=== PATIENT | female | born 1965 | race Caucasian/White ===

== ENCOUNTER 2025-04-11 07:32 | Emergency (ER) | payer OTHER ==
[2025-04-11 08:06] LABS: Bacteria/HPF None Seen HPF (None Seen); CAUTI Indications for Culture Alt mental st,lethar; Glucose, Urine (Dipstick) Normal (Negative); Leukocyte Negative Leu/uL (Negative); Protein, Urine (Dipstick) Negative (Neg-Trace); RBC/HPF 0-3 HPF (0-3); Specific Gravity, Urine 1.023 (1.002-1.036); WBC/HPF 0-3 HPF (0-3)
[2025-04-11] MEDS ORDERED: levETIRAcetam 500 MG (5 mL) VIAL ONE (08:17)
[2025-04-11 08:19] LABS: Urine Culture Reflex No No
[2025-04-11 08:23] LABS: #Basophils 0.04 10x3/uL (0.0-0.2); #Eosinophils 0.07 10x3/uL (0.0-0.7); #Monocytes 0.78 10x3/uL (0.11-0.59); #Neutrophils 6.23 10x3/uL (1.40-6.50); %Basophils 0.5 % (0.0-1.0); %Eosinophils 0.8 % (0.0-10.0); %Lymphocytes 18.4 % (21.0-51.0); %Monocytes 8.9 % (0.0-10.0); %Neutrophils 71.2 % (42.0-75.0); Hematocrit 40.7 % (36.0-47.0); Hemoglobin 13.8 g/dL (12.0-16.0); Mean Corpuscular Hemoglobin 30.6 pg (27.0-31.0); Mean Corpuscular Volume 90.2 fL (78.0-98.0); Platelet Count 290 10x3/uL (130-400); Red Blood Cell (RBC) Count 4.51 mill/uL (4.20-5.40); White Blood Cell (WBC) Count 8.75 10x3/uL (4.8-10.8)
[2025-04-11 08:32] LABS: Cocaine Metabolite Screen Negative (Negative); THC/Cannabinoid Screen PRELIM POSITIVE (Negative); Tricyclic Screen Negative (Negative)
[2025-04-11 09:09] LABS: ALT (SGPT) 20 U/L (Less than 34); AST (SGOT) 32 U/L (11-34); Acetaminophen Less than 10 mcg/mL (Less than 10); Albumin 4.3 g/dL (3.1-4.5); Alkaline Phosphatase 93 U/L (40-110); Anion Gap 18 mmol/L (10-20); BUN (Urea Nitrogen) 15 mg/dL (9.8-20.1); Bilirubin, Total 0.5 mg/dL (0.3-1.2); Calc. Creatinine Clearance 0 mL/min (70-130); Calcium 9.4 mg/dL (7.8-10.44); Carbon Dioxide 24 mmol/L (22-29); Chloride 103 mmol/L (98-107); Globulin 3.2 g/dL (2.4-3.5); Glucose 98 mg/dL (70-105); Lipase 18 U/L (8-78); Potassium 3.8 mmol/L (3.5-5.1); Salicylate Less than 8.0 mg/dL (Less than 8.0); Sodium 141 mmol/L (136-145)
== END 2025-04-11 10:08 | disposition home or self-care (01) ==
LOC: ERS 07:32
DX: R56.9 Unspecified convulsions (principal); S00.512A Abrasion of oral cavity, initial encounter; X58.XXXA Exposure to other specified factors, initial encounter
CPT/HCPCS: 70450; 71045; 80306; 80307; 81001; 83690; 84146; 84443; 85025; 93005; 96374; J1953

== ENCOUNTER 2025-05-06 09:49 | Outpatient (CLI) | payer OTHER | END 2025-05-06 09:50 | disposition home or self-care (01) | LOC: SCSMRI 09:49 | PROVIDERS: ATTEND Psychiatry & Neurology Neurology | DX: R56.9 Unspecified convulsions (principal) | CPT/HCPCS: 70553; 76376 ==